=== PATIENT | female | born 1965 | race Two or more races ===

== ENCOUNTER 2021-10-07 10:46 | Emergency (ER) | payer SELFPAY ==
[~2021-10-07] VITALS: Ht 162.6 cm; Wt 74.4 kg
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
--- NOTE | 2021-10-07 11:15 | NUR ---
AT BED SIDE
[2021-10-07] MEDS ORDERED: diphenhydrAMINE HCL 50 MG/ML VIAL IV ONE (12:00)
[2021-10-07] MEDS ORDERED: PROCHLORPERAZINE EDISYLATE 10 MG/2 ML VIAL IVP ONE (12:00)
[2021-10-07] MEDS ORDERED: IV NS 0.9% 500 ML BAG IV ONE (12:00)
--- NOTE | 2021-10-07 12:05 | NUR ---
BLOOD DRAWN AND URINE SAMPLE SENT TO LAB
[2021-10-07] MEDS ORDERED: PROCHLORPERAZINE EDISYLATE 10 MG/2 ML VIAL ONE (12:12)
[2021-10-07] MEDS ORDERED: diphenhydrAMINE HCL 50 MG/ML VIAL ONE (12:12)
[2021-10-07 12:15] LABS: BASOPHILS % (AUTO) 0.5 % (0.0-2.0); EOSINOPHILS % (AUTO) 1.5 % (0.0-6.0); HEMATOCRIT 42 % (33-45); HEMOGLOBIN 13.8 g/dL (11.5-14.8); LYMPHOCYTES # (AUTO) 1.2 K/uL (0.8-4.8); LYMPHOCYTES % (AUTO) 25.1 % (20.0-44.0); MEAN CORPUSCULAR HGB CONC 33 g/dl (31.0-36.0); MEAN CORPUSCULAR VOLUME 87 fL (82-100); MONOCYTES # (AUTO) 0.3 K/uL (0.1-1.30); MONOCYTES % (AUTO) 6.5 % (2.0-12.0); NEUTROPHILS # (AUTO) 3.2 K/uL (1.8-8.9); NEUTROPHILS % (AUTO) 66.4 % (43.0-81.0); PLATELET COUNT (AUTO) 230 K/uL (150-450); RED BLOOD CELL COUNT(AUTO) 4.82 MIL/uL (4.0-5.2); WHITE BLOOD COUNT (AUTO) 4.8 K/uL (4.3-11.0)
--- NOTE | 2021-10-07 12:15 | NUR ---
PATIENT WENT FOR CT HEAD AND SPINE VIA WHEELCHAIR
[2021-10-07 12:32] LABS: CALCIUM, SERUM 9.1 mg/dL (8.5-10.1); CREATININE 0.8 mg/dL (0.6-1.3); POTASSIUM 4.2 mmol/L (3.5-5.1)
[2021-10-07 12:38] LABS: BILIRUBIN,DIRECT 0.1 mg/dL (0.0-0.2); BILIRUBIN,TOTAL 0.2 mg/dL (0.2-1.0); TOTAL PROTEIN, SERUM 7.6 g/dL (6.4-8.2)
[2021-10-07 13:00] LABS: BILIRUBIN,URINE NEGATIVE (NEGATIVE); COLOR,URINE YELLOW (YELLOW); LEUKOCYTE ESTERASE ,URINE NEGATIVE (NEGATIVE); NITRITE, URINE NEGATIVE (NEGATIVE); PROTEIN,URINE NEGATIVE (NEGATIVE); UGLUCOSE NEGATIVE (NEGATIVE); UROBILINOGEN,URINE 0.2 EU/dL (0.2)
[2021-10-07 13:03] LABS: BACTERIA,URINE None seen /HPF (None Seen); RBC,URINE 0-2 /HPF (0-2); SQUAMOUS EPITHELIAL CELL,UR Few /HPF (None Seen); WBC,URINE 0-2 /HPF (0-3)
[2021-10-07] MEDS ORDERED: KETOROLAC TROMETHAMINE INJ 30 MG/ML VIAL IV ONE (13:30)
[2021-10-07] MEDS ORDERED: KETOROLAC TROMETHAMINE 15 MG/ML VIAL ONE (14:09)
--- NOTE | 2021-10-07 15:30 | NUR ---
IV removed. Catheter intact and site benign. Pressure and 4x4 applied to site. No bleeding noted.Patient discharged to home in stable condition. Written and verbal after care instructions given. Patient verbalizes understanding of instruction.
[2021-10-07 15:33] VITALS: BP 117/66
== END 2021-10-07 15:30 | disposition home or self-care (01) ==
LOC: ER 10:51
DX: S06.0X9A Concussion with loss of consciousness of unspecified duration, initial encounter (principal); R51.9 Headache, unspecified; Z88.0 Allergy status to penicillin; V49.9XXA Car occupant (driver) (passenger) injured in unspecified traffic accident, initial encounter; Y93.89 Activity, other specified; Y92.89 Other specified places as the place of occurrence of the external cause; Y99.8 Other external cause status
CPT/HCPCS: 36415; 70450; 71045; 72125; 80048; 80076; 81001; 84703; 85025; 85652; 85730; 96374; 96375; 99285; J0780; J1200; J1885; J7040

== ENCOUNTER 2024-12-23 13:41 | Emergency (ER) | payer MEDICAID, OTHER ==
[~2024-12-23] VITALS: Ht 162.6 cm; Wt 56.7 kg
[2024-12-23] MEDS ORDERED: ACETAMINOPHEN 325 MG TABLET ONE (15:13)
[2024-12-23] MEDS: ACETAMINOPHEN 325 MG TABLET PO ONE (15:15)
[2024-12-23] MEDS: LIDOCAINE 2% 20 ML MDV TP ONE (16:00)
[2024-12-23] MEDS ORDERED: LIDOCAINE 2% 20 ML MDV ONE (16:01)
[2024-12-23] MEDS ORDERED: IBUP-1953 PO (17:04)
[2024-12-23] MEDS: BACI/NEOM/POLY B OINT PKT 1 UDPKT PACKET TP ONE (17:10)
[2024-12-23] MEDS ORDERED: TDAP [DIPH/PERTUSSIS/TET] 0.5 ML VIAL IM ONE (17:18)
[2024-12-23] MEDS: TDAP [DIPH/PERTUSSIS/TET] 0.5 ML VIAL IM ONE (17:20)
[2024-12-23 17:25] VITALS: BP 124/90; TEMP 98; O2SAT 98
== END 2024-12-23 17:25 | disposition home or self-care (01) ==
LOC: ER 13:47
DX: S62.337A Displaced fracture of neck of fifth metacarpal bone, left hand, initial encounter for closed fracture (principal); S09.8XXA Other specified injuries of head, initial encounter; M25.522 Pain in left elbow; M79.642 Pain in left hand; R07.1 Chest pain on breathing; R07.81 Pleurodynia; Z88.0 Allergy status to penicillin
CPT/HCPCS: 26605; 70450; 71100; 73080; 73130; 90471; 90715; 99285; A6403; J3490